=== PATIENT | male | born 1990 | race Asian ===

== ENCOUNTER 2020-08-21 05:14 | Emergency (ER) | payer OTHER ==
[~2020-08-21] VITALS: Ht 180.3 cm; Wt 96.8 kg
[2020-08-21 05:18] VITALS: TEMP 98
[2020-08-21 05:44] LABS: BASO # 0.1 (0.0-0.2); BASO % 0.9 % (0.0-2.0); EOS # 0.2 (0.0-0.7); EOS % 1.8 % (0-4.0); GRAN # 2.5 (1.4-6.5); GRAN % 29.5 % (42.2-75.2); HEMOGLOBIN 13.6 g/dl (13.5-18.0); LYMPH # 4.9 (1.2-3.4); MEAN CELL VOLUME 87 fl (80.0-100.0); MEAN CORPUSCULAR HEMOGLOBIN 30 pg (27.0-31.0); MEAN CORPUSCULAR HGB CONC 34 g/dl (33.0-37.0); MEAN PLATELET VOLUME 8.9 fl (7.4-10.4); MONO # 0.8 (0.1-0.6); MONO % 9.7 % (1.7-9.3); PLATELET COUNT 369 K/mm3 (130-400); RED BLOOD COUNT 4.61 M/mm3 (4.20-5.60); REDCELL DISTRIBUTION WIDTH-CV 13.5 % (11.5-14.5)
[2020-08-21 05:55] LABS: ALBUMIN 4.7 gm/dL (3.5-5.0); BILIRUBIN,TOTAL 0.4 mg/dL (0.0-1.0); CALCIUM 9.5 mg/dL (8.4-10.2); CREATININE, serum 0.73 (0.66-1.25); POTASSIUM 3.5 mmol/L (3.4-5.0); TOTAL PROTEIN 7.8 gm/dL (6.4-8.2)
[2020-08-21 06:36] LABS: COLLECTION METHOD CLEAN CATCH
[2020-08-21 06:48] LABS: MUCOUS Present /lpf; PH 5 (5-8); SQUAMOUS EPITHELIAL None Seen /hpf; URINE APPEARANCE Clear; URINE BACTERIA None Seen /hpf; URINE BILIRUBIN Negative (NEGATIVE); URINE BLOOD 3+ (NEGATIVE); URINE COLOR Yellow; URINE GLUCOSE Negative (NEGATIVE); URINE KETONE Negative (NEGATIVE); URINE LEUKOCYTE ESTERASE Negative (NEGATIVE); URINE NITRATE Negative (NEGATIVE); URINE PROTEIN(semi-quant) 1+ (NEGATIVE); URINE RBC >50 /hpf; URINE UROBILINOGEN Negative (NEGATIVE)
[2020-08-21] MEDS ORDERED: NORCO 325 MG-51 TAB PO (09:16)
[2020-08-21] MEDS ORDERED: DOXYCYCLINE 10100 MG PO (09:16)
[2020-08-21 09:32] VITALS: BP 120/88; PULSE 88
== END 2020-08-21 09:37 | disposition home or self-care (01) ==
LOC: COL.ER 05:14
PROVIDERS: Emergency Medicine
DX: N50.811 Right testicular pain (principal)
CPT/HCPCS: J1170; J2270; J2405; J7030

== ENCOUNTER 2020-10-27 08:17 | Emergency (ER) | payer OTHER ==
[~2020-10-27] VITALS: Ht 180.3 cm; Wt 96.8 kg
[~2020-10-27 08:17] MED LIST: DOXYCYCLINE 10100 MG PO; NORCO 325 MG-51 TAB PO
[2020-10-27 08:28] VITALS: TEMP 98
[2020-10-27 08:50] LABS: BASO # 0.1 (0.0-0.2); BASO % 0.5 % (0.0-2.0); EOS # 0.1 (0.0-0.7); EOS % 0.7 % (0-4.0); GRAN # 8.1 (1.4-6.5); GRAN % 63.2 % (42.2-75.2); HEMATOCRIT 39.7 % (42.0-52.0); HEMOGLOBIN 13.5 g/dl (13.5-18.0); LYMPH # 3.9 (1.2-3.4); MEAN CELL VOLUME 84 fl (80.0-100.0); MEAN CORPUSCULAR HEMOGLOBIN 29 pg (27.0-31.0); MEAN CORPUSCULAR HGB CONC 34 g/dl (33.0-37.0); MEAN PLATELET VOLUME 9.2 fl (7.4-10.4); MONO # 0.7 (0.1-0.6); MONO % 5.4 % (1.7-9.3); PLATELET COUNT 361 K/mm3 (130-400); RED BLOOD COUNT 4.73 M/mm3 (4.20-5.60); REDCELL DISTRIBUTION WIDTH-CV 13.2 % (11.5-14.5)
[2020-10-27 09:01] LABS: COLLECTION METHOD CLEAN CATCH
[2020-10-27 09:01] LABS: ALBUMIN 4.8 gm/dL (3.5-5.0); BILIRUBIN,TOTAL 0.1 mg/dL (0.0-1.0); C-REACTIVE PROTEIN 0.6 mg/dL (0.0-0.9); CALCIUM 9.6 mg/dL (8.4-10.2); CREATININE, serum 0.87 (0.66-1.25); POTASSIUM 3.6 mmol/L (3.4-5.0); TOTAL PROTEIN 8.2 gm/dL (6.4-8.2)
[2020-10-27 09:13] LABS: MUCOUS Present /lpf; PH 5 (5-8); SQUAMOUS EPITHELIAL 0-2 /hpf; URINE APPEARANCE Hazy; URINE BACTERIA None Seen /hpf; URINE BILIRUBIN Negative (NEGATIVE); URINE BLOOD 3+ (NEGATIVE); URINE COLOR Yellow; URINE GLUCOSE Negative (NEGATIVE); URINE KETONE Negative (NEGATIVE); URINE LEUKOCYTE ESTERASE Negative (NEGATIVE); URINE NITRATE Negative (NEGATIVE); URINE PROTEIN(semi-quant) Negative (NEGATIVE); URINE RBC >50 /hpf; URINE UROBILINOGEN Negative (NEGATIVE)
[2020-10-27] MEDS ORDERED: NORCO 325 MG-51 TAB PO (09:30)
[2020-10-27] MEDS ORDERED: ZOFRAN ODT4 MG PO (09:30)
[2020-10-27 09:50] VITALS: BP 120/79; PULSE 102
== END 2020-10-27 09:50 | disposition home or self-care (01) ==
LOC: COL.ER 08:17
PROVIDERS: Emergency Medicine
DX: R31.9 Hematuria, unspecified (principal); N50.812 Left testicular pain; R10.32 Left lower quadrant pain; D72.829 Elevated white blood cell count, unspecified; Z87.442 Personal history of urinary calculi
CPT/HCPCS: J1885; J2405; J3010; J7030

== ENCOUNTER 2021-02-23 13:31 | Emergency (ER) | payer OTHER ==
[~2021-02-23 13:31] MED LIST changes: +ZOFRAN ODT4 MG PO
[2021-02-23 14:04] LABS: COLLECTION METHOD CLEAN CATCH
[2021-02-23 14:12] LABS: BASO # 0.1 (0.0-0.2); BASO % 0.7 % (0.0-2.0); EOS # 0.1 (0.0-0.7); EOS % 0.6 % (0-4.0); GRAN # 7.4 (1.4-6.5); GRAN % 73.2 % (42.2-75.2); HEMATOCRIT 41.4 % (42.0-52.0); HEMOGLOBIN 14.1 g/dl (13.5-18.0); LYMPH % 19.9 % (20.0-51.0); MEAN CELL VOLUME 84 fl (80.0-100.0); MEAN CORPUSCULAR HEMOGLOBIN 29 pg (27.0-31.0); MEAN CORPUSCULAR HGB CONC 34 g/dl (33.0-37.0); MEAN PLATELET VOLUME 9.3 fl (7.4-10.4); MONO # 0.5 (0.1-0.6); MONO % 5.4 % (1.7-9.3); PLATELET COUNT 343 K/mm3 (130-400); RED BLOOD COUNT 4.92 M/mm3 (4.20-5.60); REDCELL DISTRIBUTION WIDTH-CV 13.1 % (11.5-14.5)
[2021-02-23 14:21] LABS: MUCOUS Present /lpf; PH 5 (5-8); SQUAMOUS EPITHELIAL None Seen /hpf; URINE APPEARANCE Hazy; URINE BACTERIA Rare /hpf; URINE BILIRUBIN Negative (NEGATIVE); URINE BLOOD 3+ (NEGATIVE); URINE COLOR Yellow; URINE GLUCOSE Negative (NEGATIVE); URINE KETONE Negative (NEGATIVE); URINE LEUKOCYTE ESTERASE Negative (NEGATIVE); URINE NITRATE Negative (NEGATIVE); URINE PROTEIN(semi-quant) 1+ (NEGATIVE); URINE RBC >50 /hpf; URINE UROBILINOGEN Negative (NEGATIVE)
[2021-02-23 14:42] LABS: BILIRUBIN,TOTAL 0.3 mg/dL (0.0-1.0); CREATININE, serum 0.8 (0.66-1.25); POTASSIUM 4.2 mmol/L (3.4-5.0); TOTAL PROTEIN 8.6 gm/dL (6.4-8.2)
[2021-02-23] MEDS ORDERED: NORCO 325 MG-51 TAB PO (15:36)
[2021-02-23] MEDS ORDERED: FLOMAX 0.40.4 MG/CAP PO (15:36)
[2021-02-23 16:21] VITALS: BP 148/82; PULSE 72
== END 2021-02-23 16:22 | disposition home or self-care (01) ==
LOC: COL.ER 13:31
PROVIDERS: Emergency Medicine
DX: N23 Unspecified renal colic (principal); N50.812 Left testicular pain; Z87.442 Personal history of urinary calculi
CPT/HCPCS: J1885; J2270; J2405; J3010; J7030

== ENCOUNTER 2021-02-28 14:04 | Observation (INO) | payer OTHER ==
[~2021-02-28] VITALS: Ht 182 cm; Wt 103.2 kg
[~2021-02-28 14:04] MED LIST changes: +FLOMAX 0.40.4 MG/CAP PO
[2021-02-28 15:16] LABS: COLLECTION METHOD CLEAN CATCH
[2021-02-28 15:25] LABS: PH 6 (5-8); SQUAMOUS EPITHELIAL None Seen /hpf; URINE APPEARANCE Hazy; URINE BACTERIA None Seen /hpf; URINE BILIRUBIN Negative (NEGATIVE); URINE BLOOD 3+ (NEGATIVE); URINE COLOR Yellow; URINE GLUCOSE Negative (NEGATIVE); URINE KETONE 2+ (NEGATIVE); URINE LEUKOCYTE ESTERASE Negative (NEGATIVE); URINE NITRATE Negative (NEGATIVE); URINE PROTEIN(semi-quant) 2+ (NEGATIVE); URINE RBC >50 /hpf; URINE UROBILINOGEN Negative (NEGATIVE)
[2021-02-28] MEDS ORDERED: PYRIDIUM 100MG100 MG PO (17:45)
[2021-02-28] MEDS ORDERED: NORCO 325 MG-51 TAB PO (17:46)
[2021-02-28 19:00] VITALS: BP 139/88; PULSE 95; TEMP 97.7
--- NOTE | 2021-02-28 19:00 | NUR ---
Pt. arrived from the PACU. Vitals stable. Pt. urinated upon arriving to the room. Pt. denies pain or other needs.
[2021-02-28 19:15] VITALS: BP 145/89; PULSE 92
[2021-02-28 19:30] VITALS: BP 145/89; PULSE 93
[2021-02-28 19:45] VITALS: BP 127/91; PULSE 92
--- NOTE | 2021-02-28 19:45 | NUR ---
Pt. sitting up at bedside. Pt. is A&OX3, assessment complete. INT to lt. ac patent. Pt. has met discharge criteria. Reviewed discharge paperwork with the pt. Pt. voices understanding. INT to lt. ac discontinued. Pt. dressed and escorted out by wheelchair.
== END 2021-02-28 20:00 | disposition home or self-care (01) ==
LOC: COL.ER 14:04 → SURG 17:38
PROVIDERS: Nurse Practitioner Family; ADMIT Urology
DX: N13.2 Hydronephrosis with renal and ureteral calculous obstruction (principal)
CPT/HCPCS: C1769; C1894; J0690; J1100; J1885; J2270; J2405; J2704; J3010; J7030; Q9967